=== PATIENT | female | born 1995 | race Caucasian/White ===

== ENCOUNTER → 2017-05-07 | Outpatient (CLI) | payer OTHER ==
[2017-05-11 02:58] LABS: CHLAMYDIA TRACH RNA*** NOT DETECTED (NOT DETECTED); GC (NEIS GONORRHOEAE)RNA** NOT DETECTED (NOT DETECTED)
== END | disposition home or self-care (01) ==
LOC: C.LABSPEC 11:18
PROVIDERS: ATTEND Obstetrics & Gynecology
DX: R10.2 Pelvic and perineal pain (principal)

== ENCOUNTER → 2017-05-07 | Outpatient (CLI) | payer OTHER | END | disposition home or self-care (01) | LOC: C.PAPS 14:48 | PROVIDERS: ATTEND Obstetrics & Gynecology | DX: Z12.4 Encounter for screening for malignant neoplasm of cervix (principal) ==

== ENCOUNTER 2017-10-19 21:02 | Emergency (ER) | payer OTHER ==
[~2017-10-19] VITALS: Ht 160 cm; Wt 95.6 kg
[2017-10-19 21:07] VITALS: TEMP 37; Ht 160 cm; Wt 95.6 kg
[2017-10-19] MEDS ORDERED: ONDANSETRON INJ 2 MG/ML 2 ML VIAL IV STA (21:17)
[2017-10-19] MEDS ORDERED: MoRPHine SULFATE 10 MG/ML CARP/VIAL IV STA (21:17)
[2017-10-19] MEDS ORDERED: MoRPHine SULFATE 2 MG/ML CARP ONE (21:22)
[2017-10-19] MEDS ORDERED: MoRPHine SULFATE 4 MG/ML 1 ML CARP\\VIAL ONE (21:22)
[2017-10-19 21:37] LABS: BASO % 0.1 %; BASO ABS # 0.01 K/uL (0-0.2); EOS % 1.9 %; EOS ABS # 0.13 K/uL (0-0.5); HEMATOCRIT 38.2 % (37-47); HEMOGLOBIN 13.1 g/dL (12.0-16.0); IG# 0.01 K/uL (0.00-0.02); LYMPH ABS # 2.28 K/uL (1.2-3.4); MEAN CELL VOLUME 87.8 fL (80-100); MEAN CORPUSCULAR HEMOGLOBIN 30.1 pg (25-34); MEAN CORPUSCULAR HGB CONC 34.3 g/dl (32-36); MEAN PLATELET VOLUME 10.5 fL (7.4-10.4); MONO ABS # 0.69 K/uL (0.11-0.59); NEUT % 54.9 %; NEUT ABS # 3.79 K/uL (1.4-6.5); PLATELET COUNT 237 K/uL (130-400); RED CELL DISTRIBUTION WIDTH CV 13.3 % (11.5-14.5); RED CELL DISTRIBUTION WIDTH SD 43.4 fL (36.4-46.3); WHITE BLOOD COUNT 6.91 K/uL (4.8-10.8)
[2017-10-19 21:55] LABS: ALBUMIN 3.9 gm/dl (3.4-5.0); ALT/SGPT 33 U/L (12-78); BLOOD UREA NITROGEN 7 mg/dl (7-18); CALCIUM 8.8 mg/dl (8.5-10.1); CARBON DIOXIDE 26 mmol/L (21-32); GLUCOSE 94 mg/dl (70-99); LIPASE 80 U/L (73-393); POTASSIUM 3.6 mmol/L (3.5-5.1); SODIUM 139 mmol/L (136-145)
[2017-10-19 21:58] LABS: ALKALINE PHOSPHATASE 78 U/L (45-117); AST/SGOT 25 U/L (15-37); TOTAL PROTEIN 7.5 gm/dl (6.4-8.2)
--- NOTE | 2017-10-19 22:00 | DIAGNOSTIC IMAGING REPORT ---
ABDOMEN AND PELVIS CT WITHOUT CONTRAST CT DOSE: 637.06 mGy.cm HISTORY: Acute right lower quadrant abdominal and right flank pain. rlq abd pain/flank pain TECHNIQUE: Multiaxial CT images of the abdomen and pelvis were performed without contrast. A dose lowering technique was utilized adhering to the principles of ALARA. COMPARISON STUDY: None. FINDINGS: Lung bases are clear. There is no pneumatosis or pneumoperitoneum identified. Imaged inferior cardiac chambers are unremarkable. Liver, spleen, gallbladder, pancreas and adrenal glands are within normal limits. Kidneys, ureters and urinary bladder are within normal limits. The uterus and adnexa appear unremarkable. Aorta is normal in course and caliber. No bulky adenopathy. No bowel obstruction or focal bowel wall thickening. There is mild gaseous distention of the colon. Air-filled appendix appears noninflamed. Soft tissues are unremarkable. Bones appear intact. IMPRESSION: 1. Mild gaseous distention of the colon without bowel obstruction or focal bowel wall thickening. 2. No evidence of acute appendicitis. 3. No renal calculi or obstructive uropathy. Electronically signed by: Toro Mc M.D. 10/19/2017 9:59 PM Dictated Date/Time: 10/19/2017 9:55 PM
[2017-10-19] MEDS ORDERED: KETOROLAC TROMETHAMINE 30 MG/ML VIAL IV STA (22:10)
[2017-10-19] MEDS ORDERED: MoRPHine SULFATE 4 MG/ML 1 ML CARP\\VIAL IV STA (22:10)
--- NOTE | 2017-10-19 22:50 | EMERGENCY ROOM VISIT NOTE ---
History Report prepared by Arvind: Nimo Atkins Under the Supervision of: Dr. Flo Denney D.O. First contact with patient: 21:12 Chief Complaint: FLANK PAIN Stated Complaint: SHARP PAIN R SIDE History of Present Illness The patient is a 22 year old female who presents to the Emergency Room with complaints of worsening right sided abdominal pain starting 1630. The pain worsens with sitting down. She has never had this pain before. She reports nausea. She denies any vaginal bleeding, vaginal discharge, change in bowel movement. Her last bowel movement was yesterday. She denies any history of kidney stones. Her last menstrual period was 1.5 weeks ago. She still has her gallbladder and appendix. Pain starts in her right lower quadrant and radiates upwards to her right upper quadrant. She notes that it does take her breath away as it is very severe. Source of History: patient Onset: 1630 Position: abdomen (right sided) Quality: other (pain) Timing: worsening Modifying Factors (Worsening): other (sitting) Associated Symptoms: + nausea Note: Pt denies vaginal bleeding/discharge, change in bowel movement. Review of Systems See HPI for pertinent positives & negatives. A total of 10 systems reviewed and were otherwise negative. Past Medical & Surgical Medical Problems: (1) Active labor (2) Strep throat Family History No pertinent family history stated. Social History Smoking Status: Current Every Day Smoker Housing Status: lives with family Occupation Status: employed Current/Historical Medications No Active Prescriptions or Reported Meds Allergies Coded Allergies: Pineapple (Verified Allergy, Severe, TONGUE SWELLS, ITCHY MOUTH, 10/19/17) Physical Exam Vital Signs Date Time Temp Pulse Resp B/P (MAP) Pulse Ox O2 Delivery O2 Flow Rate FiO2 10/19/17 22:41 87 18 141/72 100 10/19/17 21:07 37.0 126 20 148/84 100 Room Air Physical Exam GENERAL: Sitting up in bed, significant distress, holding RLQ. EYE EXAM: normal conjunctiva. OROPHARYNX: no exudate, no erythema, lips, buccal mucosa, and tongue normal and mucous membranes are moist NECK: supple, no nuchal rigidity, no adenopathy, non-tender LUNGS: Clear to auscultation. Normal chest wall mechanics HEART: no murmurs, S1 normal and S2 normal ABDOMEN: abdomen soft, minimal tenderness in the RLQ, normo-active bowel sounds , no masses, no rebound or guarding. BACK: Back is symmetrical on inspection and there is no deformity, no midline tenderness, no CVA tenderness. SKIN: no rashes and no bruising UPPER EXTREMITIES: upper extremities are grossly normal. LOWER EXTREMITIES: No pitting edema. NEURO EXAM: Normal sensorium, cranial nerves II-XII grossly intact, normal speech, no gross weakness of arms, no gross weakness of legs. Medical Decision & Procedures ER Provider Diagnostic Interpretation: Radiology results as stated below per my review and the radiologist's interpretation: PELVIC COMPLETE NON OB HISTORY: 22 years-old Female rlq abd pain acute right lower quadrant abdominal pain COMPARISON: CT abdomen and pelvis 10/19/2017 TECHNIQUE: Multiple real-time sonographic images of the deep pelvic structures were obtained transabdominally and transvaginally assessing grayscale appearance, color and spectral flow FINDINGS: TRANSABDOMINAL: Anteflexed uterus measures 7.5 x 3.8 x 5.2 cm. Endometrium measures 8 mm. TRANSVAGINAL: Anteflexed uterus measures 8.1 x 3.7 x 4.3 cm. Endometrium measures 9 mm and is homogeneous. No myometrial mass lesions identified. Small nabothian cysts. Evaluation of the ovaries limited secondary to obscuring bowel gas. Right ovary measures 3.5 x 2.4 x 2.2 cm and is within normal limits with arterial inflow and venous outflow documented. Left ovary measures 4.0 x 2.4 x 2.9 cm and also demonstrates arterial inflow and venous outflow. There is a heterogeneous centrally hypoechoic structure in the left ovary overall measuring 1.5 x 0.9 x 1.7 cm with peripheral vascularity. Trace free pelvic fluid. IMPRESSION: 1. Complex centrally cystic 1.7 cm structure of the left ovary suggests involuting follicle. No evidence of ovarian torsion. 2. Uterus, endometrium and right ovary appear unremarkable. 3. Trace free pelvic fluid, likely physiologic. The above report was generated using voice recognition software. It may contain grammatical, syntax or spelling errors. Electronically signed by: Toro Mc M.D. 10/19/2017 10:47 PM Dictated Date/Time: 10/19/2017 10:44 PM ABDOMEN AND PELVIS CT WITHOUT CONTRAST CT DOSE: 637.06 mGy.cm HISTORY: Acute right lower quadrant abdominal and right flank pain. rlq abd pain/flank pain TECHNIQUE: Multiaxial CT images of the abdomen and pelvis were performed without contrast. A dose lowering technique was utilized adhering to the principles of ALARA. COMPARISON STUDY: None. FINDINGS: Lung bases are clear. There is no pneumatosis or pneumoperitoneum identified. Imaged inferior cardiac chambers are unremarkable. Liver, spleen, gallbladder, pancreas and adrenal glands are within normal limits. Kidneys, ureters and urinary bladder are within normal limits. The uterus and adnexa appear unremarkable. Aorta is normal in course and caliber. No bulky adenopathy. No bowel obstruction or focal bowel wall thickening. There is mild gaseous distention of the colon. Air-filled appendix appears noninflamed. Soft tissues are unremarkable. Bones appear intact. IMPRESSION: 1. Mild gaseous distention of the colon without bowel obstruction or focal bowel wall thickening. 2. No evidence of acute appendicitis. 3. No renal calculi or obstructive uropathy. Electronically signed by: Toro Mc M.D. 10/19/2017 9:59 PM Dictated Date/Time: 10/19/2017 9:55 PM Laboratory Results 10/19/17 21:25 Red Blood Count 4.35, Mean Corpuscular Volume 87.8, Mean Corpuscular Hemoglobin 30.1, Mean Corpuscular Hemoglobin Concent 34.3, Mean Platelet Volume 10.5, Neutrophils (%) (Auto) 54.9, Lymphocytes (%) (Auto) 33.0, Monocytes (%) (Auto) 10.0, Eosinophils (%) (Auto) 1.9, Basophils (%) (Auto) 0.1, Neutrophils # (Auto ) 3.79, Lymphocytes # (Auto) 2.28, Monocytes # (Auto) 0.69, Eosinophils # (Auto ) 0.13, Basophils # (Auto) 0.01 10/19/17 21:25 Test 10/19/17 00:00 10/19/17 21:25 Urine Color YELLOW Urine Appearance CLOUDY (CLEAR) Urine pH 7.0 (4.5-7.5) Urine Specific [place] 1.027 (1.000-1.030) Urine Protein NEG (NEG) Urine Glucose (UA) NEG (NEG) Urine Ketones TRACE (NEG) Urine Occult Blood NEG (NEG) Urine Nitrite NEG (NEG) Urine Bilirubin NEG (NEG) Urine Urobilinogen NEG (NEG) Urine Leukocyte Esterase SMALL (NEG) Urine WBC (Auto) /hpf (0-5) Urine RBC (Auto) /hpf (0-4) Urine Hyaline Casts (Auto) /lpf (0-5) Urine Epithelial Cells (Auto) /lpf (0-5) Urine Bacteria (Auto) (NEG) Urine RBC 0-4 /hpf (0-4) Urine WBC 10-30 /hpf (0-5) Urine Epithelial Cells >30 /lpf (0-5) Urine Bacteria 1+ (NEG) Urine Hyaline Casts 0 /lpf (0-5) Urine Test NEG (NEG) White Blood Count 6.91 K/uL (4.8-10.8) Red Blood Count 4.35 M/uL (4.2-5.4) Hemoglobin 13.1 g/dL (12.0-16.0) Hematocrit 38.2 % (37-47) Mean Corpuscular Volume 87.8 fL (80-100) Mean Corpuscular Hemoglobin 30.1 pg (25-34) Mean Corpuscular Hemoglobin Concent 34.3 g/dl (32-36) Platelet Count 237 K/uL (130-400) Mean Platelet Volume 10.5 fL (7.4-10.4) Neutrophils (%) (Auto) 54.9 % Lymphocytes (%) (Auto) 33.0 % Monocytes (%) (Auto) 10.0 % Eosinophils (%) (Auto) 1.9 % Basophils (%) (Auto) 0.1 % Neutrophils # (Auto) 3.79 K/uL (1.4-6.5) Lymphocytes # (Auto) 2.28 K/uL (1.2-3.4) Monocytes # (Auto) 0.69 K/uL (0.11-0.59) Eosinophils # (Auto) 0.13 K/uL (0-0.5) Basophils # (Auto) 0.01 K/uL (0-0.2) RDW Standard Deviation 43.4 fL (36.4-46.3) RDW Coefficient of Variation 13.3 % (11.5-14.5) Immature Granulocyte % (Auto) 0.1 % Immature Granulocyte # (Auto) 0.01 K/uL (0.00-0.02) Anion Gap 8.0 mmol/L (3-11) Est Creatinine Clear Calc Drug Dose 246.7 ml/min Estimated GFR () > 150.0 Estimated GFR (Non- 149.9 BUN/Creatinine Ratio 17.9 (10-20) Calcium Level 8.8 mg/dl (8.5-10.1) Total Bilirubin 0.2 mg/dl (0.2-1) Direct Bilirubin < 0.1 mg/dl (0-0.2) Aspartate Amino Transf (AST/SGOT) 25 U/L (15-37) Alanine Aminotransferase (ALT/SGPT) 33 U/L (12-78) Alkaline Phosphatase 78 U/L (45-117) Total Protein 7.5 gm/dl (6.4-8.2) Albumin 3.9 gm/dl (3.4-5.0) Lipase 80 U/L (73-393) Laboratory results per my review. Medications Administered Medications (Trade) Dose Ordered Sig/Bruce Route Start Time Stop Time Status Last Admin Dose Admin Ondansetron HCl (Zofran Inj) 4 mg NOW STAT IV 10/19/17 21:17 10/19/17 21:18 DC 10/19/17 21:25 4 MG Morphine Sulfate (MoRPHine SULFATE INJ) 4 mg STK-MED ONCE .ROUTE 10/19/17 21:22 10/19/17 21:23 DC 10/19/17 21:26 4 MG Morphine Sulfate (MoRPHine SULFATE INJ) 2 mg STK-MED ONCE .ROUTE 10/19/17 21:22 10/19/17 21:23 DC 10/19/17 21:26 2 MG Morphine Sulfate (MoRPHine SULFATE INJ) 4 mg NOW STAT IV 10/19/17 22:10 10/19/17 22:11 DC 10/19/17 22:41 4 MG Ketorolac Tromethamine (Toradol Inj) 30 mg NOW STAT IV 10/19/17 22:10 10/19/17 22:11 DC 10/19/17 22:41 30 MG ED Course ED COURSE: Vital signs were reviewed and showed tachycardia. The patients medical record was reviewed The above diagnostic studies were performed and reviewed. ED treatments and interventions as stated above. 2112: The patient was evaluated in room C7. A complete history and physical examination was performed. 2116: Zofran Inj 4 mg IV. 2121: Morphine Sulfate 6 mg IV. 2208: I reevaluated the patient. I updated her on the results. 2209: Toradol Inj 30 mg IV, Morphine Sulfate 4 mg IV. 2250: Upon reevaluation, the patient is feeling better. I discussed my findings with the patient and she understands and agrees with the treatment plan. Based on the patients age, coexisting illnesses, exam and lab findings the decision to treat as an outpatient was made. The patient remained stable while under my care. The patient appeared well at the time of discharge. Medical Decision Differential diagnoses includes but is not limited to gastritis, peptic ulcer disease, GERD, gallbladder disease, pancreatitis, small bowel obstruction, acute coronary syndrome, pericarditis, ischemic bowel, irritable bowel disease, irritable bowel syndrome, appendicitis, diverticulitis, malignancy, hernia, urinary tract infection, torsion, /ectopic , perforation, trauma, infectious. Patient is a 22-year-old female who presents to ER for right lower quadrant abdominal pain radiating upwards. She denies any urinary complaints. There is no significant past medical history. CBC all BMP, LFTs, bilirubin lipase is unremarkable. was negative. UA had bacteria, epithelials and white cells along with Estrace. CT of the abdomen and pelvis shows mild gaseous distention of the abdomen. Normal appendix. Normal gallbladder. No ovarian masses. No obstructions. Patient was given 2 doses of IV morphine and fluids. She did feel significantly better. Ultrasound of the pelvis was performed and showed a small amount of free fluid and involuting left ovarian follicle. Again she has no urinary symptoms. Will not treat a contaminate UA at this time. Favor pain at this time is either secondary to a recently passed stone, gaseous distention of the colon, or the ovarian follicle. Did give recommendations of MiraLAX use at home. Tylenol Motrin for pain. Discussed with Pt concerning signs and symptoms to watch out for. Pt was instructed to follow up with their PCP and discussed with the patient their option to return to the ED at anytime for persistent or worsening symptoms. The appropriate anticipatory guidance and out-patient management, including indications for return to the emergency department, were explained at length to the patient and understood. Medication Reconcilliation Current Medication List: was personally reviewed by me Blood Pressure Screening Patient's blood pressure: Normal blood pressure Blood pressure disposition: Did not require urgent referral Impression Primary Impression: Abdominal pain Scribe Attestation The scribe's documentation has been prepared under my direction and personally reviewed by me in its entirety. I confirm that the note above accurately reflects all work, treatment, procedures, and medical decision making performed by me. Departure Information Dispostion Home / Self-Care Prescriptions No Active Prescriptions or Reported Meds Referrals No Doctor, Assigned (PCP) Forms HOME CARE DOCUMENTATION FORM, IMPORTANT VISIT INFORMATION Patient Instructions Abdominal Pain - [facility], My [facility] Additional Instructions Please follow up with your primary care doctor with in the next 24 hours. Any worsening of your symptoms, please return to the ED immediately. This includes any fevers greater than 100.4, worsening pain, chest pain, shortness breath, persistent nausea, vomiting, unable to eat or drink, or any other concerning signs or symptoms from your standpoint. You were given medications during this visit that will inhibit your ability to drive, operate machinery and work. Please do NOT drive, operate machinery, drink alcohol or work for the next 12hrs. Please take Motrin or Tylenol as needed for pain. Please take MiraLAX which is [id number] to assist with the distention of the colon. Problem Qualifiers Primary Impression: Abdominal pain Abdominal location: right lower quadrant Qualified Codes: R10.31 - Right lower quadrant pain
[2017-10-19 23:08] VITALS: BP 121/65; PULSE 88; O2SAT 97
--- NOTE | 2017-10-22 09:08 | DIAGNOSTIC IMAGING REPORT ---
PELVIC COMPLETE NON OB HISTORY: 22 years-old Female rlq abd pain acute right lower quadrant abdominal pain COMPARISON: CT abdomen and pelvis 10/19/2017 TECHNIQUE: Multiple real-time sonographic images of the deep pelvic structures were obtained transabdominally and transvaginally assessing grayscale appearance, color and spectral flow FINDINGS: TRANSABDOMINAL: Anteflexed uterus measures 7.5 x 3.8 x 5.2 cm. Endometrium measures 8 mm. TRANSVAGINAL: Anteflexed uterus measures 8.1 x 3.7 x 4.3 cm. Endometrium measures 9 mm and is homogeneous. No myometrial mass lesions identified. Small nabothian cysts. Evaluation of the ovaries limited secondary to obscuring bowel gas. Right ovary measures 3.5 x 2.4 x 2.2 cm and is within normal limits with arterial inflow and venous outflow documented. Left ovary measures 4.0 x 2.4 x 2.9 cm and also demonstrates arterial inflow and venous outflow. There is a heterogeneous centrally hypoechoic structure in the left ovary overall measuring 1.5 x 0.9 x 1.7 cm with peripheral vascularity. Trace free pelvic fluid. IMPRESSION: 1. Complex centrally cystic 1.7 cm structure of the left ovary suggests involuting follicle. No evidence of ovarian torsion. 2. Uterus, endometrium and right ovary appear unremarkable. 3. Trace free pelvic fluid, likely physiologic. The above report was generated using voice recognition software. It may contain grammatical, syntax or spelling errors. Electronically signed by: Toro Mc M.D. 10/19/2017 10:47 PM Dictated Date/Time: 10/19/2017 10:44 PM
== END 2017-10-19 23:10 | disposition home or self-care (01) ==
LOC: C.EDB 21:03 → C.EDC 23:10
DX: R10.31 Right lower quadrant pain (principal); F17.200 Nicotine dependence, unspecified, uncomplicated

== ENCOUNTER 2019-11-04 08:44 | Inpatient (IN) ==
[2019-11-04] MEDS ORDERED: OXYTOCIN 30 UNITS/500 ML BAG IV PRN (19:59)
[2019-11-04] MEDS ORDERED: miSOPROStoL 50 MCG TAB PO ONE (19:59)
[2019-11-04 20:29] LABS: Hematocrit (blood only) 29.5 % (37-47); Hemoglobin 10.4 g/dL (12.0-16.0); Mean Corpuscular Hemoglobin 29.3 pg (25-34); Mean Corpuscular Volume 83.1 fL (80-100); Mean Platelet Volume 11.8 fL (7.4-10.4); Platelet Count 171 K/uL (130-400); RDW Standard Deviation 42.9 fL (36.4-46.3); Red Blood Count 3.55 M/uL (4.2-5.4); White Blood Count 9.79 K/uL (4.8-10.8)
[2019-11-04 20:34] LABS: Mean Corpuscular Hgb Conc 35.3 g/dL (32-36)
[2019-11-05] MEDS: CALCIUM CARBONATE 500 MG CHEWABLE TAB PO PRN ×2 (00:01→16:57)
[2019-11-05] MEDS: miSOPROStoL 50 MCG TAB PO PRN ×2 (01:30→05:31)
[2019-11-05 09:31] LABS: Hepatitis B Surface Antigen Neg (Neg); Rubella IgG Antibody Immune (Immune)
[2019-11-05] MEDS ORDERED: OXYTOCIN 30 UNITS/500 ML BAG IV PRN ×2 (12:18→20:25)
[2019-11-05] MEDS: LACTATED RINGER'S 1,000 ML IV PRN ×3 (12:21→19:28)
[2019-11-05] MEDS ORDERED: ePHEDrine sulfate 50 MG/ML AMP ONE (12:52)
[2019-11-05] MEDS ORDERED: fentaNYL citrate 100 MCG/2 ML VIAL ONE (12:52)
[2019-11-05] MEDS ORDERED: BUPIVACAINE 0.25% 30 ML VIAL ONE (12:52)
[2019-11-05] MEDS ORDERED: fentaNYL 2MCG/ML ROPIV 1.25MG/ML 100 ML BAG EPI ONE (12:53)
[2019-11-05] MEDS ORDERED: ePHEDrine sulfate 50 MG/ML AMP IV PRN (13:09)
[2019-11-05] MEDS ORDERED: ONDANSETRON INJ 2 MG/ML 2 ML VIAL IV PRN (13:09)
[2019-11-05] MEDS ORDERED: fentaNYL 2MCG/ML ROPIV 1.25MG/ML 100 ML BAG EPI PRN (13:09)
[2019-11-05] MEDS ORDERED: NALBUPHINE HCL INJ 10 MG/ML AMP IV PRN (13:09)
[2019-11-05] MEDS ORDERED: NALOXONE HCL 1 MG in SODIUM CHLORIDE 0.9% 1000ML 1,000 ML IV PRN (13:09)
[2019-11-05] MEDS ORDERED: NALOXONE HCL 0.4 MG/1 ML VIAL/CARP IV PRN (13:09)
--- NOTE | 2019-11-05 13:11 | Anesthesiology Consultation ---
Date of Service November 05, 2019 Assessment & Plan (1) Encounter for pre-operative examination: Chart Review Chart Review: Patient NOT seen in Pre Admission Testing and Acceptable Risk for Labor Epidural Consults Requested none History Height/Weight Height: 5 ft 2 in Weight: 104.326 kg Allergies Allergy/AdvReac Type Severity Reaction Status Date / Time pineapple Allergy Severe TONGUE Verified 09/09/19 16:47 SWELLS, ITCHY MOUTH diphenhydramine Allergy Unknown Unknown Verified 09/09/19 16:47 Medications Active Medications Generic Name Dose Route Start Last Admin Trade Name Freq PRN Reason Stop Dose Admin Calcium Carbonate 1,000 mg 11/04/19 23:43 11/05/19 00:01 Tums PO 12/04/19 23:42 1,000 mg Q6 PRN Administration Indigestion Lactated Ringer's 1,000 mls @ 125 mls/hr 11/04/19 19:59 11/05/19 12:21 Lr IV 11/06/19 19:58 125 mls/hr .Q8H PRN Administration L&D Protocol Protocol Oxytocin 30 units in 500 mls @ 2 mls/hr 11/05/19 12:18 11/05/19 12:44 Pitocin IV 12/05/19 12:17 0.12 units/hr .Q24H PRN 2 mls/hr Labor Induction/Augmentation Administration Protocol 0.12 UNITS/HR Misoprostol 50 mcg 11/05/19 00:30 11/05/19 05:31 Cytotec PO 12/05/19 00:29 50 mcg Q4 PRN Administration induction of labor Past Medical History obesity Exercise / Class Metabolic Activity II 4-5 Yardwork/Stairs/Walk up hill Past Family History Family History Unknown Cervical cancer Mother Endometriosis Other No significant family history Past Surgical History Surgical History History of placement of ear tubes age 4-8 Hx of tonsillectomy age 10 Past Anesthesia History No Hx of Anesthesia Complications and No Family Hx of Anesthesia Complications History of PONV No Hx of PONV and No Hx of Motion Sickness Social History Smoking Status: Current every day smoker tobacco type: cigarettes Smoking cigarettes per day: 4 Do You Dip or Chew Tobacco: No Hx Alcohol Use: No Hx Substance Use: No Physical Exam Vital Signs Last Vital Signs Temp 36.6 C 11/05/19 12:00 Pulse 84 11/05/19 13:07 Resp 20 11/05/19 12:00 BP 137/75 11/05/19 13:06 Pulse Ox 100 11/05/19 13:07 Testing Laboratory Results 11/04/19 20:17
[2019-11-05] MEDS ORDERED: bisacodyL 10 MG SUPP PR PRN (20:25)
[2019-11-05] MEDS ORDERED: OXYCODONE/ACETAMINOPHEN 5mg/325mg TAB PO PRN (20:25)
[2019-11-05] MEDS ORDERED: HYDROCORTISONE ACETATE 25 MG SUPP PR PRN (20:25)
[2019-11-05] MEDS ORDERED: SUPERCREAM 0.870% 15 GM JAR EXT PRN (20:25)
[2019-11-05] MEDS ORDERED: ACETAMINOPHEN W/CODEINE #3 1 TAB PO PRN (20:25)
[2019-11-05] MEDS ORDERED: DIPHTHERIA/TETANUS/PERTUSSIS 0.5 ML SYR/VIAL IM ONE (20:25)
[2019-11-05] MEDS ORDERED: BENZOCAINE 20% AER SPR 82.5 GM CAN EXT PRN (20:25)
[2019-11-05] MEDS: ACETAMINOPHEN 325 MG TAB PO PRN (20:43)
--- NOTE | 2019-11-05 20:45 | Anesthesia Procedure Note ---
Date of Service November 05, 2019 Anesthesia Post Epidural Note Vital Signs Vital Signs: Temp Pulse Resp BP Pulse Ox 36.9 C 100 H 18 119/73 98 11/05/19 19:08 11/05/19 20:35 11/05/19 19:08 11/05/19 20:35 11/05/19 20:23 Notes Mental Status: alert / awake / arousable and participated in evaluation Patient Amnestic to Procedure: No Nausea / Vomiting: adequately controlled Pain: adequately controlled Airway Patency, RR, SpO2: stable & adequate BP & HR: stable & adequate Hydration State: stable & adequate Neuraxial Anesthesia: was administered and sensory block is resolving Anesthetic Complications: no major complications apparent and Pt Satisfied with anesthetic care Epidural: Removed without complications and With tip intact
[2019-11-05] MEDS: DOCUSATE SODIUM 100 MG CAP PO SCH (21:40)
[2019-11-06] MEDS: IBUPROFEN 600 MG TAB PO PRN ×4 (03:17→20:38)
--- NOTE | 2019-11-06 05:02 | Delivery Summary ---
DATE OF OPERATION: 11/05/2019 2, para 2, blood type B positive, group B strep negative, was induced for suspected macrosomia, had her membranes stripped several times in the office. Estimated weight was 8+ pounds. She was brought in for admission. She was given 3 doses of p.o. oral Cytotec and then her cervix started to dilate up about 3. After that she was switched to IV Pitocin. She went to full dilatation, delivered head and there was some retraction of the head. Turtle sign after delivery of the head. Then shoulders were delivered with some difficulty. We had to flex maternal thighs, pull up on the head to get the posterior shoulder and the sacrum, then go back to the anterior shoulder, dislodged it from above with suprapubic pressure and slowly the shoulder started to come. Rest of the body delivery was tight. Once the was born, it was suctioned through the mouth and the nose. Cord was clamped and cut. She did have some proximal weakness of the left arm, although he had good awning hanger supervisor and some movement. Apgars deferred to the nurses. With IV Pitocin running, the placenta was removed intact. Inspection of the perineum revealed no lacerations. Estimated blood loss was 200 mL. DIAGNOSIS: Moderate plus shoulder dystocia. I attest to the content of the Intraoperative Record and any orders documented therein. Any exception s are noted below.
[2019-11-06 05:59] LABS: Hematocrit (blood only) 29.3 % (37-47); Hemoglobin 10.1 g/dL (12.0-16.0); Mean Corpuscular Hemoglobin 28.6 pg (25-34); Mean Corpuscular Hgb Conc 34.5 g/dL (32-36); Mean Platelet Volume 11.9 fL (7.4-10.4); Platelet Count 157 K/uL (130-400); RDW Coefficient of Variation 14.1 % (11.5-14.5); RDW Standard Deviation 42.5 fL (36.4-46.3); Red Blood Count 3.53 M/uL (4.2-5.4)
[2019-11-06] MEDS ORDERED: PRENATAL VITAMIN 1 TAB PO SCH (08:00)
[2019-11-06] MEDS: DOCUSATE SODIUM 100 MG CAP PO SCH ×2 (08:01→20:38)
--- NOTE | 2019-11-06 13:26 | Obstetrical Progress Note ---
Date of Service November 06, 2019 Physical Exam Physical Exam: abdomen soft and non tender no calf tenderness ambulating well vaginal bleeding scant hgb 10.1 Results & Data Vital Signs (Past 12 Hours) Vital Signs Temp Pulse Resp BP Pulse Ox 11/06/19 08:05 36.4 C L 75 18 108/67 96 11/06/19 03:15 36.6 C 72 18 129/79
[2019-11-06] MEDS: ACETAMINOPHEN 325 MG TAB PO PRN (17:44)
[2019-11-06] MEDS ORDERED: bisacodyL 5 MG TABEC PO SCH (20:00)
== END 2019-11-06 22:30 | disposition home or self-care (01) | DRG 807 ==
LOC: 4S1 19:06 → 4S2 11-05 22:45